=== PATIENT | female | born 1990 | race Caucasian/White ===

== ENCOUNTER 2016-09-24 14:06 | Outpatient (CLI) | payer OTHER ==
[~2016-09-24] VITALS: Ht 162.6 cm; Wt 98.0 kg
[2016-09-24] MEDS ORDERED: PRENTAB9 PO (14:12)
== END 2016-09-24 14:55 | disposition home or self-care (01) ==
LOC: M LDO 14:06
PROVIDERS: ATTEND Obstetrics & Gynecology
DX: O26.893 Other specified pregnancy related conditions, third trimester (principal); R51 Headache; Z3A.37 37 weeks gestation of pregnancy

== ENCOUNTER 2016-10-09 19:04 | Outpatient (CLI) | payer OTHER ==
[~2016-10-09] VITALS: Ht 162.6 cm; Wt 98.0 kg
[~2016-10-09 19:04] MED LIST: PRENTAB9 PO
[2016-10-09] MEDS ORDERED: ACET50TA PO (19:28)
[2016-10-09] MEDS ORDERED: FIOR1CAP PO (19:30)
[2016-10-09] MEDS ORDERED: UNIS25TA2 PO (19:31)
[2016-10-09 19:34] VITALS: BP 138/83
== END 2016-10-09 21:25 | disposition home or self-care (01) ==
LOC: M LDO 19:04
PROVIDERS: ATTEND Student in an Organized Health Care Education/Training Program
DX: O26.893 Other specified pregnancy related conditions, third trimester (principal); R10.9 Unspecified abdominal pain; Z3A.39 39 weeks gestation of pregnancy

== ENCOUNTER 2016-10-13 11:35 | Inpatient (IN) | payer OTHER ==
[~2016-10-13] VITALS: Ht 162.6 cm; Wt 96.0 kg
[2016-10-13] VITALS (31 sets, daily range): BP systolic 98–159; BP diastolic 57–84
[~2016-10-13 11:35] MED LIST changes: +ACET50TA PO; +FIOR1CAP PO; +UNIS25TA2 PO
[2016-10-13] MEDS ORDERED: LACTATED RINGER'S 1000 ML IV STA (12:37)
[2016-10-13] MEDS ORDERED: miSOPROStol 50 MCG 1/2 TAB (S0191) PO SCH (12:45)
--- NOTE | 2016-10-13 12:56 | HPEPDOC ---
Obstetrical History & Physical General Date of Admission 10/13/2016 History of Present Illness Nabila is a 26yo with SIUP at 40w3d by 7wk u/s who presents with clear leaking of fluid since 1500 yesterday (10/12). Denies fevers/chills. Feels good movement. No vaginal bleeding. Occasional very mild ctx. PMhx: migraines course: Rh negative, received rhogam 07/21 Chief Complaint: LOF, term Information Provided By: Patient Care Care: Good Care Dating Final EDC: Oct 10, 2016 Final EDC by: 1st trimester (US) Antepartum Course Diagnos(e)s Rh negative, received rhogam 07/21 Height (inches): 64 Pre- weight (lbs.): 196 Admission Weight (lbs.): 218 Change in Weight (lbs.): 22 Past Medical History Past Obstetrical History : Past Obstetrical History: Multigravida Date of Delivery: Apr 04, 2010 Gestation: 39 Type of Delivery: Spontaneous Vaginal Del. Sex of : Male Complications: No CARBONATION TESTER History: No pertinent history Past Medical History Medical History Migraines Surgical History: Tonsilectomy Family History Significant Family History: No pertinent family hx Social History Marital Status: Family situation: Spouse/partner home Psychosocial History: No pertinent psych hx * Smoker: non-smoker Alcohol: Denies Drugs: denies Imunizations Tdap status: current Influenza Status: current Allergies Coded Allergies: Hydrocodone (Verified Adverse Reaction, Mild, 10/09/16) NAUSEA/VOMITING Medications Scheduled Multivitamins/ ( 27-0.8 mg) 1 Tab Tab, 1 TAB PO DAILY Scheduled PRN (Unisom) 25 Mg Tab, 50 MG PO QHSP PRN for SLEEP Acetamin/Butalbital/Caffeine (Fioricet 50-300-40 mg) 1 Cap Cap, 1 CAP PO Q12H PRN for HEADACHE OR PAIN Acetaminophen (Mapap) 500 Mg Tab, 1,000 MG PO Q6HP PRN for PAIN OR FEVER Physical Examination Physical Examination GENERAL: Alert and oriented times three. BREAST: . ABDOMEN: Gravid and non-tender to touch. FETUS: Is vertex (VTX) by sterile vaginal examination (SVE) EXTREMITIES: trace edema of BLE Speculum: chaperoned by RN- pooling present, nitrazine positive Vital Signs/I&O Vital Signs Date Time Temp Pulse Resp B/P (MAP) Pulse Ox O2 Delivery O2 Flow Rate FiO2 10/13/16 11:49 96.9 84 114/69 (84) Pertinent Laboratoy Data Blood Type: O- RBC Antibody Screen: Negative HIV: Negative Hepatitis B: Negative Hepatitis C: Unknown Rapid Plasma Reagin: Nonreactive Rubella: Immune Chlamydia/Gonorrhea: Negative Group B Streptococcus: Negative Cystic Fibrosis: Negative Glucose Tolerance Test: 144 (3hr: 85/129/112/108) Anatomy Ultrasound Ultrasound Date: May 29, 2016 Placenta Location: Fundal Normal Anatomy: Yes Placenta Previa: No Steroid Therapy Steroid Therapy: No Vaginal Examination Dilation: 3 cm Effacement: 75% Station: -1 Cervical Consistency: Soft Cervical Position: Posterior Presentation: Cephalic presentation Assessment Variability: Moderate Accelerations: Positive Decelerations: None Tocometer Contractions: Yes Frequency: irregular Duration: greater than 60 seconds Strength: palpated as mild Assessment/Plan Assessment Nabila is a 26yo with SIUP at 40w3d by 7wk u/s admitted for PROM at 1500 yesterday (10/12), clear. SCE /-1. Irregular mild ctx. Cephalic by SCE. Pooling and positive nitrazine on exam. GBS negative. PMhx: migraines course: Rh negative, received rhogam 07/21 Plan Admit and orient. [facility] Director and consent. Diet: clear liquids Group B Streptococcus (GBS) negative Labs and intravenous (IV) per unit protocol. Counseled on cytotec and augmentation of labor Lactated Ringers (LR): Bolus 1000 mL, then at 125 mL/hr. Anticipate normal spontaneous delivery () MD EMMY Dsouza KATRINA D. MD Oct 13, 2016 12:56
[2016-10-13 13:50] LABS: MEAN CORPUSCULAR HEMOGLOBIN 31.5 pg (27.0-33.0); MEAN CORPUSCULAR HGB CONC 34.5 g/dl (32.0-36.5); MEAN CORPUSCULAR VOLUME 91.5 fl (80.0-96.0); RED CELL DISTRIBUTION WIDTH 13.4 % (11.5-14.5); WHITE BLOOD COUNT 10.9 K/mm3 (4.0-10.0)
[2016-10-13] MEDS ORDERED: OXYTOCIN DRIP 30 UNITS in APPROPRIATE DILUENT 1 EA IV SCH (20:15)
--- NOTE | 2016-10-13 20:27 | IPNPDOC ---
Text Note Date of Service The patient was seen on 10/13/16. NOTE Breathing through contractions, desiring epidural. SCE now 4-5/80/-1, fluid still clear. Cat I FHRT, ctx q3-5min. Will proceed with epidural then start pitocin and titrate per protocol. Dr. Thierry De La Fuente MD VS,Vane, I+O VS, Vane, I+O Laboratory Tests 10/13/16 13:10 Red Blood Count 3.72 L, Mean Corpuscular Volume 91.5, Mean Corpuscular Hemoglobin 31.5, Mean Corpuscular Hemoglobin Concent 34.5, Red Cell Distribution Width 13.4 Vital Signs Date Time Temp Pulse Resp B/P (MAP) Pulse Ox O2 Delivery O2 Flow Rate FiO2 10/13/16 18:14 97.8 80 16 120/75 (90) THIERRY DE LA FUENTE MD Oct 13, 2016 20:27
[2016-10-13] MEDS: LR 1,000 ML IV SCH ×2 (20:37→22:41)
[2016-10-13] MEDS ORDERED: FENTANYL 2MCG/ML ROPIVACAINE 0.2% IN 0.9% NACL 200ML IVBAG As Ordered ONE (20:53)
[2016-10-13] MEDS ORDERED: NALOXONE INJ 0.4 MG/1 ML VIAL (J2310) IV PRN (22:30)
[2016-10-13] MEDS ORDERED: LACTATED RINGER'S 1000 ML IV PRN (22:30)
[2016-10-13] MEDS ORDERED: REFRIGERATOR IV KEYS XX PRN (22:30)
[2016-10-13] MEDS ORDERED: ONDANSETRON 4MG/2ML VIAL (J2405) IV ONE (22:30)
[2016-10-13] MEDS ORDERED: ONDANSETRON 4MG/2ML VIAL (J2405) IV PRN (22:30)
[2016-10-13] MEDS ORDERED: diphenhydrAMINE INJ 50MG/ML VIAL (J1200) IV PRN (22:30)
[2016-10-13] MEDS ORDERED: EPIDURAL COMMENT XX SCH (22:30)
[2016-10-13] MEDS ORDERED: EPIDURAL/PCA KEYS XX PRN (22:30)
[2016-10-13] MEDS: FENTANYL/ROPIVACAINE/NACL BAG 200 ML EPIDURAL SCH (22:30)
[2016-10-13] MEDS: ePHEDrine SULFATE 25 MG/5 ML(5MG/ML) SYRINGE IV PRN ×2 (22:50→23:00)
--- NOTE | 2016-10-13 23:20 | IPNPDOC ---
Text Note Date of Service The patient was seen on 10/13/16. NOTE Patient comfortable with epidural. SCE now /. Haven't started pitocin since had some minimal variability of FHRT after epidural. Received ephedrine for bp. Tracing Cat I-II currently, good variability with no decels. Since progressing well, no need for pitocin. Will recheck in 2hr or earlier as indicated. Dr. Thierry De La Fuente MD VS,Vane, I+O VS, Vane, I+O Laboratory Tests 10/13/16 13:10 Red Blood Count 3.72 L, Mean Corpuscular Volume 91.5, Mean Corpuscular Hemoglobin 31.5, Mean Corpuscular Hemoglobin Concent 34.5, Red Cell Distribution Width 13.4 Vital Signs Date Time Temp Pulse Resp B/P (MAP) Pulse Ox O2 Delivery O2 Flow Rate FiO2 10/13/16 18:14 97.8 80 16 120/75 (90) THIERRY DE LA FUENTE MD Oct 13, 2016 23:20
[2016-10-14] VITALS (20 sets, daily range): BP systolic 113–129; BP diastolic 58–72
--- NOTE | 2016-10-14 03:55 | DNPDOC ---
[facility] Delivery Note Delivery Note DATE OF DELIVERY: Oct 14, 2016 at 0325 PREDELIVERY DIAGNOSIS: 40w4d premature rupture of membranes POST DELIVERY DIAGNOSIS: Delivered. PROCEDURE: Spontaneous vaginal delivery SUBGRADE TESTER: Dr. Thierry De La Fuente MD ANESTHESIA: epidural ESTIMATED BLOOD LOSS: 150 mL. FINDINGS: 7 pound 6 ounce female infant, Score 9/9 DELIVERY SUMMARY: Patient is a 26-year-old 2 now para 2002 who was admitted to labor and delivery for PROM at 40w4d. At C/C/+2 patient began to push and had uncomplicated of viable female infant at 0325 on 10/14/16. Head delivered OA , restituted MARIA C, right shoulder delivered without difficulty followed by left shoulder and corpus. Baby placed on maternal chest. very vigorous and spontaneous cry noted. Apgars 9/9. Umbilical cord clamped x2 and cut by FOB after a minute of delayed cord clamping. Placenta delivered intact with centrally inserted cord. Massage of uterine fundus and lower uterine segment until firm. Pitocin given per protocol. Very small 1mll inside the introitus ( none of it perineal) repaired with 4-0 vicryl in standard fashion. Hemostasis noted. Mom and doing well. No complications. Dr. Thierry De La Fuente MD [place] MD Oct 14, 2016 03:55
[2016-10-14] MEDS ORDERED: OXYTOCIN DRIP 30 UNITS in APPROPRIATE DILUENT 1 EA IV SCH (03:58)
[2016-10-14] MEDS ORDERED: DOCUSATE SODIUM 100 MG CAP PO PRN (04:00)
[2016-10-14] MEDS ORDERED: DIBUCAINE 1% OINTMENT 30GM TOP PRN (04:00)
[2016-10-14] MEDS ORDERED: RHOGAM 300 MCG (1500 IU) INJ (J2790) IM SCH (04:00)
[2016-10-14] MEDS ORDERED: ACETAMINOPHEN 500 MG TAB PO PRN (04:00)
[2016-10-14] MEDS ORDERED: MEASLES,MUMPS,RUBELLA VACCINE INJ (MMR-II) (90707) SC SCH (04:00)
[2016-10-14] MEDS: LR 1,000 ML IV SCH ×2 (04:37→12:37)
[2016-10-14] MEDS: IBUPROFEN 800 MG TAB PO PRN ×2 (07:55→16:55)
[2016-10-14] MEDS: PRENATAL VITAMIN TAB PO SCH (07:55)
[2016-10-14] MEDS: FENTANYL/ROPIVACAINE/NACL BAG 200 ML EPIDURAL SCH (18:30)
[2016-10-15 06:00] VITALS: BP 108/68
[2016-10-15] MEDS: IBUPROFEN 800 MG TAB PO PRN ×2 (06:20→14:38)
[2016-10-15] MEDS: PRENATAL VITAMIN TAB PO SCH (08:14)
[2016-10-15] MEDS ORDERED: IBUP-1114 PO (09:13)
[2016-10-15] MEDS ORDERED: COLA100C3 PO (09:13)
[2016-10-15] MEDS: FENTANYL/ROPIVACAINE/NACL BAG 200 ML EPIDURAL SCH (14:30)
== END 2016-10-15 17:50 | disposition home or self-care (01) | DRG 775 ==
LOC: M LDO 11:35 → M LDI 13:01 → M OBS 10-14 06:13
PROVIDERS: ADMIT Obstetrics & Gynecology; ATTEND Obstetrics & Gynecology
PROC: 10E0XZZ Delivery of Products of Conception, External Approach (ICD-10-PCS; principal; 2016-10-14)
PROC: 0HQ9XZZ Repair Perineum Skin, External Approach (ICD-10-PCS; 2016-10-14)
DX: O42.12 Full-term premature rupture of membranes, onset of labor more than 24 hours following rupture (principal); Z3A.40 40 weeks gestation of pregnancy; O70.0 First degree perineal laceration during delivery; Z37.0 Single live birth